=== PATIENT | female | born 1945 | race Caucasian/White ===

== ENCOUNTER 2023-07-15 06:23 | Inpatient (IN) | payer MEDICARE, OTHER, SELFPAY ==
--- NOTE | 2023-06-10 11:53 | CM ---
Patient is scheduled for an elective R THR on 07/15/23. Spoke with patient prior to surgery via telephone. Introduced role of Orthopedic Navigator. Patient reports that she lives with her significant other in a multi story home. There are three steps
to enter and a flight of steps down to the basement where she goes daily. There is a stair glide on these steps (she uses this going down but walks up the steps). She currently functions independently. She has a cane, rolling walker, raised toilet
seat with rails and hip kit. She has never had VN services. PCP is Dr. Irving De Jesus.
Discussed orthopedic program and post surgical plans. Reviewed anticipated length of stay and that goal is for her to return home at discharge. Also reviewed outpatient PT. Patient is in agreement with tentative plan and will go directly to
outpatient PT at [facility]. She will have support from her significant other when she goes home.
Patient will complete online education.
Plan: Orthopedic Navigator will remain available to assist with the care of patient and will reassess discharge needs after surgery.
[2023-06-25 09:02] VITALS: BMI 27.2
[2023-06-25 10:18] LABS: Hematocrit 38.6 % (37.0-47.0); Hemoglobin 13.2 g/dL (12.0-16.0); Mean Corp Hgb Conc. 34.2 g/dL (33.0-37.0); Mean Corpuscular Hgb 30.4 pg (27.0-31.0); Mean Corpuscular Volume 88.9 fL (81.0-99.0); Mean Platelet Volume 10.2 fL (7.4-10.4); Platelet Count 262 10^3/uL (130-400); Red Blood Cell Count 4.34 10^6/uL (4.20-5.40); Red Cell Dist. Width 13.2 % (11.5-14.5); White Blood Cell Count 5.9 10^3/uL (4.8-10.8)
[2023-06-25 11:07] LABS: ALT (SGPT) 27 U/L (0-35); AST (SGOT) 31 U/L (14-36); Albumin 4.1 g/dl (3.5-5.0); Alkaline Phosphatase 101 U/L (38-126); Blood Urea Nitrogen 18 mg/dl (7-17); Calcium 9.8 mg/dl (8.4-10.2); Carbon Dioxide 32 mmol/L (22-30); Chloride 103 mmol/L (98-107); Estimated Creatinine Clearance 70 ml/min; Glucose 94 mg/dl (70-99); Potassium 4.2 mmol/L (3.5-5.1); Sodium 140 mmol/L (135-145); Total Bilirubin 0.7 mg/dl (0.2-1.3); Total Protein 6.8 g/dl (6.3-8.2); eGFR > 60.00
[2023-06-25 13:20] LABS: Glycohemoglobin (HgbA1c) 5.5 % (4.0-5.6)
[2023-06-25 15:26] VITALS: BMI 27.2
[2023-07-15] VITALS (14 sets, daily range): BP systolic 125–188; BP diastolic 62–90; PULSE 86; BMI 27.2
[2023-07-15] MEDS: NORMOSOL-R 1000 IV (09:45)
[2023-07-15] MEDS: CELEBREX 200 MG PO (09:58)
[2023-07-15] MEDS: TYLENOL 650 MG PO ×3 (09:58→21:19)
[2023-07-15] MEDS: NSS 1000 IV (14:32)
[2023-07-15] MEDS: ROXICODONE 5 MG PO (15:35)
[2023-07-15] MEDS: COMPAZINE 5 MG IV ×2 (16:02→21:23)
--- NOTE | 2023-07-15 16:38 | PTCARENOTE ---
Patient received from PACU in bed; IVF infusing; Surgical site assessed with SHIPPING CLERK/ADMIN; Patient oriented to room and unit; Bed in lowest position, wheels locked; Call talbert within reach; PT/OT in to begin working with patient; Assessment ongoing
[2023-07-15] MEDS: NEURONTIN 200 MG PO ×2 (16:53→21:19)
[2023-07-15] MEDS: ANCEF 5 IV (17:01)
[2023-07-15] MEDS: SENOKOT PO (21:19)
[2023-07-15] MEDS: PROTONIX 40 MG PO (21:19)
[2023-07-15] MEDS: ATIVAN 0.5 MG PO (21:20)
[2023-07-15] MEDS: ELIQUIS 2.5 MG PO (21:20)
[2023-07-15] MEDS: COLACE 100 MG PO (21:21)
[2023-07-15] MEDS: BACTROBAN 2% OINTMENT 1 APPLIC NASAL (21:22)
[2023-07-15] MEDS: BETAPACE 60 MG PO (21:22)
[2023-07-16] MEDS: TYLENOL PO (00:46)
[2023-07-16] MEDS: ANCEF 5 IV (02:14)
[2023-07-16 03:31] VITALS: BP 115/58
[2023-07-16] MEDS: TYLENOL 650 MG PO ×3 (03:47→12:09)
[2023-07-16 07:38] VITALS: BP 120/67
[2023-07-16] MEDS: NEURONTIN 200 MG PO (07:55)
[2023-07-16] MEDS: PROTONIX 40 MG PO (07:55)
[2023-07-16] MEDS: SENOKOT 17.1999999999999993 MG PO (07:55)
[2023-07-16] MEDS: BETAPACE 60 MG PO (07:56)
[2023-07-16] MEDS: ELIQUIS 2.5 MG PO (07:56)
[2023-07-16] MEDS: COLACE 100 MG PO (07:56)
[2023-07-16] MEDS: COMPAZINE IV (07:57)
[2023-07-16] MEDS: ATIVAN 0.5 MG PO (07:57)
[2023-07-16] MEDS: BACTROBAN 2% OINTMENT 1 APPLIC NASAL (07:57)
--- NOTE | 2023-07-16 08:32 | CM ---
Addendum entered by Chery Gibson 07/16/23 11:11:
Patient did well in therapy. She has no concerns about going home and has updated her significant other.
Original Note:
Reviewed chart and held rounds with PT, OT and nursing. Patient admitted as planned for elective R THR. Met with patient at bedside. Confirmed information previously obtained for assessment. Also discussed discharge plans. The plan is for patient to
return home at discharge. She will have support from her significant other when she goes home. Patient will go directly to outpatient PT and will go to [facility]. She has an appointment scheduled for Saturday, 07/16.
Patient has a rolling walker, cane, lift chair, raised toilet seat and hip kit.
She will use [facility] pharmacy for discharge prescriptions.
--- NOTE | 2023-07-16 09:30 | W.PN.ORTHO ---
Today's Communication / Plan
-
Await PT and OT recs.
D/c later today if remaining clinically stable.
Assessment
.
Distal Motor Intact: Yes
Dressing:
Clean, dry and intact.
Assessment:
R hip OA s/p R LEOLA w/ Dr Renteria 07/15/23
DVT prophylaxis - Eliquis at modified dosing, b/l venous foot pumps
- Eliquis home dosing to be resumed POD 14 since hemodynamically stable
HTN - resumed Sotalol - BPs stable
PAF, status post cardioversion x5 and PVI 03/2021 - maintaining NSR on tele
- Continue Sotalol and Diltiazem if needed
- Eliquis as stated above
Chronic diastolic heart failure, preserved ejection fraction - no signs of fluid overload during admission
GERD - continue PPI therapy
Irritable bowel syndrome with constipation - add daily Miralax to bowel regimen of Colace and Senna
Peripheral neuropathy and Sciatica - add Gabapentin TID
Iron deficiency anemia, on oral supplementation - non-invasive hgb stable 12.8
- Continue PO iron
Mild valvular disease
History of chest pain; nuclear stress test and echo 2022 stable
Chronic fatigue and shortness of breath on exertion, medication induced
Diverticulosis with remote diverticulitis
Remote migraines
Vertigo
Lumbar degenerative disc disease
History of recurrent UTIs
Left eye cataract
Anxiety
Remote history of tobacco abuse
Plan
.
Surgery / Date: R LEOLA w/ Dr Renteria 07/15/23
DVT Prophylaxis: Other (Eliquis at modified dosing )
Activity:
Out of bed.
PT/OT
Discharge Plan: Home w/ Outpatient PT
Subjective
.
.:
Patient resting comfortably in bed.
R hip pain overall well tolerated w/ minimal pain meds.
Denies any new significant complaints.
Eager for potential d/c today.
Vital Signs and Labs
.
Vital Signs and Labs:
Lab Results
06/25/23 08:53
06/25/23 08:53
Temp Pulse Resp BP Pulse Ox
98.1 F 69 18 120/67 91
07/16/23 07:38 07/16/23 07:38 07/16/23 07:38 07/16/23 07:38 07/16/23 07:38
Non-invasive Hgb result: 12.8
Physical Exam
-
HEENT: No pallor, cyanosis, or jaundice. Throat clear.
NECK: Supple. No JVD.
RESPIRATORY: Lungs clear to auscultation.
CVS: S1, S2 normal. RRR.�
ABDOMEN: Soft, non-tender. No distension.
EXTREMITIES: Strength equal, no calf pain with palpation/dorsiflexion. Calves soft.
MOLDED FRAMES ASSEMBLER: AOx3. No focal deficits. program clinician grossly intact
[2023-07-16 10:26] VITALS: BP 123/68; PULSE 66; O2SAT 99
[2023-07-16 10:40] VITALS: BP 131/70; PULSE 64; O2SAT 94
--- NOTE | 2023-07-16 10:54 | W.DS.TRANS ---
DC Summary - Horse Trainer
-
Discharge Instructions:
Sleep Apnea Risk Intermediate
Discharge Diagnosis/Procedures R hip OA s/p R LEOLA w/ Dr Renteria 07/15/23
Diet Regular
Activity As tolerated,With Walker
Driving Restrictions Not until seen by your Dr
Bathing Restrictions OK to Shower
Other Services PT
Wound Care Dressing to be removed 1 week post-surgery.
Gerlaw to be removed at 2 week follow-up
appointment with surgeon's office.
Specialty Instructions Weigh Daily
Instructions:
Stand-Alone Forms: Total Hip/Knee Replacement D/C
Changes to Home Medications: Yes
Discharge Medications:
DC Medications w/original date entered in [employer] 7
ascorbic acid (vitamin C) 250 mg tablet 250 mg PO DAILY Supplement 10/14/14
B-complex with vitamin C 1 cap PO DAILY Supplement 01/19/21
Vit C/Vitamin D3/Herb No.313 [Synogesic Capsule] 1 tab PO TID Supplement 03/30/21
apixaban 5 mg tablet (Eliquis) 5 mg PO BID Blood clot prevention/tx 04/17/21
folic acid 1 mg tablet 1 mg PO DAILY Supplement 04/17/21
lorazepam 0.5 mg tablet 0.5 mg PO HS Mental Health/Anxiety 04/17/21
sotalol 120 mg tablet 60 mg (1/2 x 120 mg) PO BID Arrhythmia #60 tabs 04/18/21
diltiazem HCl 120 mg capsule,extended release 24 hr 120 mg PO DAILYPRN PRN palpitations 10/09/21
rabeprazole 20 mg tablet,delayed release (AcipHex) 20 mg PO HS Gastrointestinal Issue 10/09/21
Co Q-10 2 dose PO DAILY Supplement 06/19/23
Spiru-Tein 1 dose PO DAILY Supplement 06/25/23
pueagwd-ytlzidutp-wckt tablet 1 tab PO DAILY Supplement 06/25/23
cranberry 500 mg capsule 500 mg PO DAILY Supplement 06/25/23
ferrous sulfate 325 mg (65 mg iron) capsule,extended release 325 mg PO TUTH Supplement 06/25/23
lorazepam 0.5 mg tablet 0.5 mg PO DAILY PRN anxiety 06/25/23
mupirocin 2 % topical ointment 1 applic intranasal BID #1 tube 06/25/23
acetaminophen 500 mg tablet (Tylenol Extra Strength) 1,000 mg (2 x 500 mg) PO Q6H #60 tabs 07/16/23
apixaban 2.5 mg tablet (Eliquis) 2.5 mg PO BID #28 tabs 07/16/23
docusate sodium 100 mg capsule 100 mg PO BID #30 caps 07/16/23
gabapentin 100 mg capsule 200 mg (2 x 100 mg) PO TID neuropathic pain #30 caps 07/16/23
oxycodone 5 mg tablet 5 - 10 mg (1 - 2 x 5 mg) PO Q6H PRN moderate-severe pain #30 tabs 07/16/23
polyethylene glycol 3350 17 gram oral powder packet (Miralax) 17 g PO DAILY #14 ea 07/16/23
prochlorperazine maleate 5 mg tablet 5 mg PO Q8H #30 tabs 07/16/23
sennosides 8.6 mg tablet (Senna Laxative) 17.2 mg (2 x 8.6 mg) PO BID #30 tabs 07/16/23
Home Medication Changes
acetaminophen 500 mg tablet (Tylenol Extra Strength) 1,000 mg (2 x 500 mg) PO Q6H #60 tabs 07/16/23
apixaban 2.5 mg tablet (Eliquis) 2.5 mg PO BID #28 tabs 07/16/23 - until POD 14
docusate sodium 100 mg capsule 100 mg PO BID #30 caps 07/16/23
gabapentin 100 mg capsule 200 mg (2 x 100 mg) PO TID neuropathic pain #30 caps 07/16/23
oxycodone 5 mg tablet 5 - 10 mg (1 - 2 x 5 mg) PO Q6H PRN moderate-severe pain #30 tabs 07/16/23
polyethylene glycol 3350 17 gram oral powder packet (Miralax) 17 g PO DAILY #14 ea 07/16/23
prochlorperazine maleate 5 mg tablet 5 mg PO Q8H #30 tabs 07/16/23
sennosides 8.6 mg tablet (Senna Laxative) 17.2 mg (2 x 8.6 mg) PO BID #30 tabs 07/16/23
Pending Results: No
[2023-07-16 11:26] VITALS: BP 110/53
== END 2023-07-16 13:03 | disposition home or self-care (01) | DRG 470 ==
LOC: 2 SOUTH 06:23
PROVIDERS: ADMITTING PHYSICIAN Specialist; FAMILY PHYSICIAN Family Medicine
PROC: 0SR90JA Replacement of Right Hip Joint with Synthetic Substitute, Uncemented, Open Approach (ICD-10-PCS; 2023-07-15)
DX: M16.11 Unilateral primary osteoarthritis, right hip (principal); I50.32 Chronic diastolic (congestive) heart failure; I11.0 Hypertensive heart disease with heart failure; I48.0 Paroxysmal atrial fibrillation; R53.82 Chronic fatigue, unspecified; K21.9 Gastro-esophageal reflux disease without esophagitis; K58.1 Irritable bowel syndrome with constipation; G43.909 Migraine, unspecified, not intractable, without status migrainosus; G62.9 Polyneuropathy, unspecified; M51.36 Other intervertebral disc degeneration, lumbar region; K59.09 Other constipation; F41.9 Anxiety disorder, unspecified; M54.30 Sciatica, unspecified side; D50.9 Iron deficiency anemia, unspecified; Z87.440 Personal history of urinary (tract) infections; Z87.891 Personal history of nicotine dependence; Z79.01 Long term (current) use of anticoagulants
CPT/HCPCS: 36415; 73502; 80053; 83036; 85027; 87070; 97110; 97116; 97162; 97166; 97535; C1713; C1776

== ENCOUNTER 2023-11-03 19:00 | Emergency (ER) | payer MEDICARE, OTHER, SELFPAY ==
[2023-11-03 19:07] VITALS: BP 189/97
[2023-11-03 19:29] LABS: % Basophils 0.4 % (0-2); % Eosinophils 4.3 % (0-6); % Immature Granulocytes 0.8 % (0-0.5); % Lymphocytes 25.5 % (20.5-51.1); % Monocytes 7.2 % (1.7-9.3); % Neutrophils 61.8 % (42.2-75.2); Absolute Eosinophils 0.4 10^3/uL (0-0.7); Absolute Immature Granulocytes 0.1 10^3/uL (0-0.05); Absolute Lymphocytes 2.6 10^3/uL (1.2-3.4); Absolute Monocytes 0.7 10^3/uL (0.1-0.6); Absolute Neutrophils 6.4 10^3/uL (1.4-6.5); Hematocrit 38.9 % (37.0-47.0); Hemoglobin 13.9 g/dL (12.0-16.0); Mean Corp Hgb Conc. 35.7 g/dL (33.0-37.0); Mean Corpuscular Hgb 29.8 pg (27.0-31.0); Mean Corpuscular Volume 83.5 fL (81.0-99.0); Mean Platelet Volume 9.1 fL (7.4-10.4); Nucleated Red Blood Cells % 0 %; Platelet Count 309 10^3/uL (130-400); Red Blood Cell Count 4.66 10^6/uL (4.20-5.40); Red Cell Dist. Width 13.5 % (11.5-14.5); White Blood Cell Count 10.3 10^3/uL (4.8-10.8)
[2023-11-03 19:49] LABS: ALT (SGPT) 26 U/L (0-35); AST (SGOT) 28 U/L (14-36); Albumin 4.2 g/dl (3.5-5.0); Alkaline Phosphatase 112 U/L (38-126); Blood Urea Nitrogen 18 mg/dl (7-17); Calcium 10.7 mg/dl (8.4-10.2); Carbon Dioxide 35 mmol/L (22-30); Chloride 94 mmol/L (98-107); Glucose 104 mg/dl (70-99); Potassium 4.2 mmol/L (3.5-5.1); Sodium 135 mmol/L (135-145); Total Bilirubin 0.4 mg/dl (0.2-1.3); eGFR > 60.00
[2023-11-03 19:53] VITALS: BP 192/85
[2023-11-03 19:56] LABS: Troponin I < 0.012 ng/ml
[2023-11-03 20:00] VITALS: BP 162/86
--- NOTE | 2023-11-03 20:03 | ED.GENMED ---
History of Present Illness
General
Chief Complaint: Chest Pain
Source: patient
Exam Limitations: none
Time Seen by Provider: 11/03/23 19:42
History of Present Illness
History of Present Illness:
This is a 78 year old female that comes in with c/o elevated BP and chest pain. States that on Saturday she did not feel good. States that her BP was 140/99. States that her BP was going up and down. States that she called the PCP and has an
appointment tomorrow. States that she was recently started on Chlorthalidone 25mg. States that today she felt her BP was going ever higher. States that her left arm felt weird and she felt SOB and had chest tightness. State that her voice is also
hoarse. States that she also has a headache. Denies any fever, chills, abd pain, nausea, vomiting, diarrhea, dizziness, urinary burning.
Past History
Past History
ED Past Medical History: Arrthythmia (Atrial fib), GERD, HTN, Psychiatric (Anxiety) and Other (Back pain, Dizziness, Numbness arms and legs. Sciatica, Constipation, Diverticulitis, IBS, Ovarian cyst, UTI , Shingles, Hives, Anemia, Artgrutusm )
ED Past Surgical History: Cardiac (ablation, ), Gynecological (D&C, Hysterectomy), Orthopedic (Back surgery X 3, L4 herniation. Right hip replacement) and Other (cataracts, )
Social History
Tobacco: Non-smoker
Alcohol: None
Drug: None
Personal: Other (significant other)
Living: alone
Family History
Family History: Diabetes, CAD and Other (grandmother with breast cancer)
Review of Systems
Review of Systems
All Other Systems: ROS reviewed and negative except as documented in HPI and ROS
Constitutional: Reports no symptoms; Denies fever or chills
EENT: Reports no symptoms
Respiratory: Reports trouble breathing; Denies cough
Cardiac: Reports chest pain
ABD/GI: Reports no symptoms; Denies abdominal pain, nausea, vomiting or diarrhea
: Reports no symptoms; Denies dysuria, frequency or urgency
Musculoskeletal: Reports no symptoms
Skin: Reports no symptoms
Neurological: Reports headache; Denies dizzy
Psychiatric: Reports no symptoms
Phy Exam
General Physical Exam
General Presentation: no apparent distress
General age: appears stated age
General Skin: warm and dry
General Habitus: elderly
General Mental: alert
General Hydration: appears well hydrated
ENT Exam
ENT Exam: TM's normal, pharynx normal and neck supple
Eye Exam
Eye Exam: EOMI
Cardiovascular Exam
Cardiovascular Exam: regular rate/rhythm, no edema and normal peripheral pulses
Pulmonary Exam
Pulmonary Exam: lungs clear, no respiratory distress, no rales, chest non tender, no crackles, no rhonchi, no wheezing and no cough
Gastrointestinal Exam
Gastrointestinal Exam: normal bowel sounds, non tender, soft, no organomegaly, no pulsatile mass and non distended
Musculoskeletal Exam
Musculoskeletal Exam: full ROM and no edema
Skin Exam
Skin Exam: normal color, warm/dry, no rash and no petechia
Psychiatric Exam
Psychiatric Exam: normal mood/affect
Scores
Heart Score for Chest Pain Patients
STEMI patient?: No
History: Slightly or Non-Suspicious
ECG: Normal
Age: >/= 65 years
Risk Factors: 1 or 2 Risk Factors
Troponin: </= Normal Limit
Heart Score for Chest Pain Patients: 3
Heart Score Risk: 2.5% MACE over next 6 weeks
Course
Orders/Labs/Results
Orders:
Orders
11/03/23 19:12
Electrocardiogram (*1) Urgent
Reason for Study: Chest Pain
EKG- Treatment ONCE
11/03/23 19:24
Complete Blood Count/With Diff Urgent
Comprehensive Metabolic Panel Urgent
Troponin I Urgent
11/03/23 20:05
Apixaban [Eliquis] 5 mg PO NOW STA
Sotalol [Betapace] 60 mg PO NOW STA
11/03/23 20:07
CR Chest - 2 Views Urgent
Comment:
Reason For Exam: Chest pain
11/03/23 20:22
COVID-19 Antigen Urgent
Source: Nasal Swab
11/03/23 22:34
Troponin I Urgent
Abnormal Lab Results
11/03/23
19:24
Abs Immat Gran (auto) 0.1 H 10^3/uL
(0-0.05)
Absolute Monos (auto) 0.7 H 10^3/uL
(0.1-0.6)
Immature Gran % 0.8 H %
(0-0.5)
Chloride 94 L mmol/L
(98-107)
Carbon Dioxide 35 H mmol/L
(22-30)
BUN 18 H mg/dl
(7-17)
Glucose 104 H mg/dl
(70-99)
Calcium 10.7 H mg/dl
(8.4-10.2)
11/03/23 19:24
11/03/23 19:24
Chloride slightly low. carbon dioxide elevated. Slight Dehydration. Glucose nonfasting. Hypercalcemia, Troponin <0.012
Second Troponin <0.012
Vital Signs
Initial and Last Documented VS:
Initial Vital Signs
Temp Pulse Resp BP Pulse Ox
98.1 F 73 18 189/97 99
11/03/23 19:07 11/03/23 19:07 11/03/23 19:07 11/03/23 19:07 11/03/23 19:07
Last Documented Vital Signs
Temp Pulse Resp BP Pulse Ox
98.1 F 61 14 162/86 95
11/03/23 19:07 11/03/23 20:30 11/03/23 20:30 11/03/23 20:15 11/03/23 20:30
MDM/Problems Addressed
Differential Diagnosis Includes:
Coronary syndrome. COVID,
MDM/Problems Addressed:
This is a 78 year old female that comes in with hypertension, Chest discomfort. State that she didn't feel well on Saturday and her BP was elevated. States that she has an appointment with the PCP tomorrow. States thta today her BP was even higher and
her left arm felt funny and she had chest tightness with SOB.
Will get labs. Chest x-ray, test for COVID And give patient her medication that is due at 8pm.
Back into see patient. Explained that her both Troponin are normal and her last BP was 130/67. Will place patient on the cardiology hot line for further evaluation. Patient to return with increased or changing chest pain.
Chronic conditions affecting care: HTN
Acute Exacerbation and/or Progression of Chronic Illness: HTN
*Radiology
Radiology exam reviewed: preliminary read by ED provider (Chest- Negative for active disease. ) and radiology read reviewed (Chest- No acute cardiopulmonary process)
*Pulse Oximetry
Patient hypoxic: no
*EKG
Interpreted by ED Provider?: Yes
Heart Rate: 64
Rate: normal
Rhythm: sinus arrhythmia
[place]: left axis deviation
Interval: normal interval
QRS Pattern: normal QRS
Ischemia: no ischemia
*Heel Boom Operator Interpretation
Rate: normal
Heart Rate: 71
Rhythm: sinus
*Critical Care Note
Total Time (30-74mins, 75-104mins- exclusive of procedures): Not Applicable
ED Attending Note
-
Portions of this chart may have been created with voice recognition software.� Occasional wrong word or��sound alike� substitutions may have occurred due to the inherent limitations of voice recognition software.
Discharge Plan
Departure
Patient Disposition: Home (Routine Discharge)
Date of Disposition: 11/03/23
Time of Disposition: 23:21
Patient with high blood pressure during this ER visit?: Yes
Condition: Good
Covid-19: Not Applicable
Discharge Problem:
Chest pain, Hypertension
Instructions: Chest Pain DCA Follow Up, BLOOD PRESSURE
Prescriptions:
No Action
Eliquis 5 MG tablet
5 mg PO BID
sotalol 120 MG tablet
60 mg PO BID Qty: 60 11RF
rabeprazole [AcipHex] 20 MG tablet,delayed release (DR/EC)
20 mg PO HS
diltiazem HCl 120 MG capsule,extended release 24hr
120 mg PO DAILYPRN PRN (Reason: palpitations)
Patient Comments:
10/09/21 pt states she only takes if she is having afib
Rx Instructions:
rarely uses
lorazepam 0.5 mg Tablet
0.5 mg PO BID PRN (Reason: anxiety)
Eliquis 2.5 mg tablet
2.5 mg PO BID Qty: 28 0RF
Rx Instructions:
Cut 5 mg tab in 04/16 (= 2.5 mg) and take twice a day from 4/2 PM to 4/14 PM.
Resume 5 mg twice a day 4/15 AM.
chlorthalidone 25 mg Tablet
25 mg PO DAILY
Referrals:
Irving De Jesus DO [Family Provider] - Call in 1-3 days for appt
Activity Restrictions/Additional Instructions:
As discussed, your blood work shows very slight Dehydration. Please increase your water intake to 8-8oz glasses daily. Your chest x-ray was normal and both Troponin which are specific for the heart are normal. You have been place on the Cardiology
hot line for further evaluation. This means that you will be called the next business day and set up for an appointment with the Rip Machine Operator. IF YOU HAVE INCREASED OR CHANGING CHEST PAIN, OR YOU HAVE ANY OTHER CONCERNS PLEASE RETURN TO THE
EMERGENCY ROOM.
Interventions
Interventions:
*Risk Screen - Suicide Last Done: 11/03/23 19:10
*General Assessment Last Done: 11/03/23 19:10
*Neglect/Abuse Screening Last Done: 11/03/23 19:10
ED- Fall Risk Assessment Last Done: 11/03/23 20:06
ED- Cardiac Assessment Last Done: 11/03/23 20:06
Discharge Date and Time
Print Language: KITTITIAN
[2023-11-03] MEDS: BETAPACE 60 MG PO (20:15)
[2023-11-03] MEDS: ELIQUIS 5 MG PO (20:16)
[2023-11-03 20:41] LABS: COVID-19 Antigen Negative (Negative)
[2023-11-03 21:00] VITALS: BP 145/80
[2023-11-03 22:00] VITALS: BP 130/67
[2023-11-03 23:03] LABS: Troponin I < 0.012 ng/ml
== END 2023-11-03 23:35 | disposition home or self-care (01) ==
LOC: EMR 19:00
PROVIDERS: Clinical Nurse Specialist Family Health; EMERGENCY PHYSICIAN Emergency Medicine; FAMILY PHYSICIAN Family Medicine
DX: R07.89 Other chest pain (principal); I10 Essential (primary) hypertension; R06.02 Shortness of breath; I48.91 Unspecified atrial fibrillation; K21.9 Gastro-esophageal reflux disease without esophagitis; F41.9 Anxiety disorder, unspecified; K58.9 Irritable bowel syndrome, unspecified; D64.9 Anemia, unspecified; E83.52 Hypercalcemia; E86.0 Dehydration; Z79.01 Long term (current) use of anticoagulants; Z80.3 Family history of malignant neoplasm of breast; Z82.49 Family history of ischemic heart disease and other diseases of the circulatory system; Z83.3 Family history of diabetes mellitus; Z87.440 Personal history of urinary (tract) infections; Z90.710 Acquired absence of both cervix and uterus
CPT/HCPCS: 99283; 71046; 80053; 84484; 85025; 87811; 93005

== ENCOUNTER → 2023-11-14 10:00 | Outpatient (REF) | payer MEDICARE, OTHER, SELFPAY | LOC: HWWDC 10:00 | PROVIDERS: ATTENDING PHYSICIAN Nurse Practitioner Family; FAMILY PHYSICIAN Family Medicine | DX: Z12.31 Encounter for screening mammogram for malignant neoplasm of breast (principal) | CPT/HCPCS: 77063; 77067 ==

== ENCOUNTER → 2023-11-27 08:37 | Outpatient (REF) | payer MEDICARE, OTHER, SELFPAY | LOC: DHCBC/DCA 08:37 | PROVIDERS: ATTENDING PHYSICIAN Nurse Practitioner; FAMILY PHYSICIAN Family Medicine | DX: I48.0 Paroxysmal atrial fibrillation (principal) | CPT/HCPCS: 78452; 93017; A9500; J2785 ==

== ENCOUNTER → 2023-12-06 10:21 | Outpatient (REF) | payer MEDICARE, OTHER, SELFPAY | LOC: HWRCS 10:21 | PROVIDERS: ATTENDING PHYSICIAN Nurse Practitioner; FAMILY PHYSICIAN Family Medicine | DX: I48.0 Paroxysmal atrial fibrillation (principal) | CPT/HCPCS: 93306 ==

== ENCOUNTER 2024-02-17 07:33 | Emergency (ER) | payer MEDICARE, OTHER, SELFPAY ==
[2024-02-17 07:42] VITALS: BP 146/98
[2024-02-17] MEDS: ZOFRAN 4 MG IV (08:25)
[2024-02-17] MEDS: SUBLIMAZE 50 MCG IV (08:26)
--- NOTE | 2024-02-17 08:27 | ED.GENMED ---
History of Present Illness
General
Chief Complaint: Musculo-Skeletal Complaint
Time Seen by Provider: 02/17/24 08:06
History of Present Illness
History of Present Illness:
79 yo female w/ hx of PAF on Nelia presents to the Emergency Department for evaluation of intractable R shoulder/clavicle pain; reports she had a fall early Sat AM and was taken to [facility]. Per d/c summary, she had CT Chest/Abd/Pelvis
and pt states this showed only a R clavicle fx. She was also reportedly in rapid AF and was admitted for stablization, d/c last night. Was not given anything for pain due to GI intolerance of opiates. Report N/V this AM as well. No current CP/SOB.
Past History
Past History
ED Past Medical History: Arrthythmia (Atrial fib), GERD, HTN, Psychiatric (Anxiety) and Other (Back pain, Dizziness, Numbness arms and legs. Sciatica, Constipation, Diverticulitis, IBS, Ovarian cyst, UTI , Shingles, Hives, Anemia, Artgrutusm )
ED Past Surgical History: Cardiac (ablation, ), Gynecological (D&C, Hysterectomy), Orthopedic (Back surgery X 3, L4 herniation. Right hip replacement) and Other (cataracts, )
Social History
Tobacco: Non-smoker
Alcohol: None
Drug: None
Personal: Other (significant other)
Living: alone
Employment: Employed
Family History
Family History: Diabetes, CAD and Other (grandmother with breast cancer)
Review of Systems
Review of Systems
Allergies reviewed?: Yes
All Other Systems: ROS reviewed and negative except as documented in HPI and ROS
Phy Exam
Physical Exam
Physical Exam:
GEN: Well appearing, NAD, WDWN
HEENT: Oral mucosa moist, no scleral icterus
Cardiac: Regular rate and rhythm, no murmurs
Chest: Ecchymosis to the right infraclavicular chest wall compatible with recent injury, no crepitus
Lung: No respiratory distress, no tachypnea, lungs clear to auscultation bilaterally
MSK: No gross deformity or injuries
Skin: Good color, no pallor or jaundice, no rashes
Neuro: AO x3, moves all extremities freely
Psych: Calm, cooperative
Course
Orders/Labs/Results
Orders:
Orders
02/17/24 08:14
Electrocardiogram (*1) Urgent
Reason for Study: QTc Monitoring
EKG- Treatment ONCE
Fentanyl Citrate/Pf [Sublimaze] 50 mcg IV NOW STA
Ondansetron Injectable [Zofran] 4 mg .ROUTE .STK-MED ONE
Ondansetron Injectable [Zofran] 4 mg IV NOW STA
02/17/24 08:22
Complete Blood Count/With Diff Urgent
02/17/24 09:13
Comprehensive Metabolic Panel Urgent
Creatine Phosphokinase Urgent
Abnormal Lab Results
02/17/24 02/17/24
08:22 09:13
WBC 16.2 H 10^3/uL
(4.8-10.8)
Abs Immat Gran (auto) 0.1 H 10^3/uL
(0-0.05)
Absolute Neuts (auto) 13.7 H 10^3/uL
(1.4-6.5)
Absolute Monos (auto) 0.8 H 10^3/uL
(0.1-0.6)
Immature Gran % 0.6 H %
(0-0.5)
Neutrophils % 84.3 H %
(42.2-75.2)
Lymphocytes % 9.0 L %
(20.5-51.1)
Creatinine 0.4 L mg/dL
(0.6-1.0)
Glucose 114 H mg/dl
(70-99)
AST 41 H U/L
(14-36)
02/17/24 08:22
11/04/24 09:13
Vital Signs
Initial and Last Documented VS:
Initial Vital Signs
Temp Pulse Resp BP Pulse Ox
98.4 F 77 16 146/98 98
02/17/24 07:42 02/17/24 07:42 02/17/24 07:42 02/17/24 07:42 02/17/24 07:42
Last Documented Vital Signs
Temp Pulse Resp BP Pulse Ox
98.4 F 87 19 158/79 98
02/17/24 07:42 02/17/24 10:06 02/17/24 10:06 02/17/24 10:06 02/17/24 07:42
MDM/Problems Addressed
MDM/Problems Addressed:
79-year-old female presents to the emergency department with severe pain due to a known clavicle fracture. She also reports intractable vomiting. Labs were checked showing no evidence of electrolyte dyscrasia and CPK levels are normal. She was
treated with small dose of antiemetics and pain medicine with significant improvement in symptoms. Recommend outpatient Ortho follow-up for her clavicle pain
Comment
Comment:
EKG independently interpreted by me shows normal sinus rhythm at a rate of [address] depressions laterally, new compared to EKG from October 2023
*Critical Care Note
Total Time (30-74mins, 75-104mins- exclusive of procedures): Not Applicable
ED Attending Note
-
Portions of this chart may have been created with voice recognition software.� Occasional wrong word or��sound alike� substitutions may have occurred due to the inherent limitations of voice recognition software.
Discharge Plan
Departure
Patient Disposition: Home (Routine Discharge)
Date of Disposition: 02/17/24
Time of Disposition: 10:28
Patient with high blood pressure during this ER visit?: No
Discharge Problem:
Closed fracture of right clavicle
Instructions: Broken Collarbone ED
Prescriptions:
New
oxycodone 5 mg tablet
2.5 mg PO Q8H PRN (Reason: Pain) Qty: 8 0RF
No Action
sotalol 120 MG tablet
60 mg PO BID Qty: 60 11RF
rabeprazole [AcipHex] 20 MG tablet,delayed release (DR/EC)
20 mg PO BID
diltiazem HCl 120 MG capsule,extended release 24hr
120 mg PO DAILYPRN PRN (Reason: palpitations)
Rx Instructions:
~per patient - last taken in 2021
lorazepam 0.5 mg Tablet
0.5 mg PO BID PRN (Reason: anxiety)
Rx Instructions:
02/17/24: Filled #90 tabs/30 day supply on 01/20/24 at [place] [id number] [[id number]]
chlorthalidone 25 mg Tablet
25 mg PO DAILY
Eliquis 5 mg tablet
5 mg PO BID
cyclobenzaprine 5 mg tablet
5 mg PO TIDPRN PRN (Reason: muscle spasm/pain )
Referrals:
Talon Renteria MD [Active] -
Irving De Jesus DO [Family Provider] -
Interventions
Interventions:
*Risk Screen - Suicide Last Done: 02/17/24 07:44
*Neglect/Abuse Screening Last Done: 02/17/24 07:44
ED- Fall Risk Assessment Last Done: 02/17/24 07:57
*ED COVID-19 Vaccine History Last Done: 02/17/24 07:44
*Nursing Disposition Last Done: 02/17/24 10:53
ED-Musculoskeletal Assessment Last Done: 02/17/24 07:57
Discharge Date and Time
Discharge Date/Time: 02/17/24 10:54
Print Language: DANISH
[2024-02-17 08:30] VITALS: BP 148/74
[2024-02-17 08:46] LABS: % Basophils 0.4 % (0-2); % Eosinophils 0.8 % (0-6); % Immature Granulocytes 0.6 % (0-0.5); % Monocytes 4.9 % (1.7-9.3); % Neutrophils 84.3 % (42.2-75.2); Absolute Basophils 0.1 10^3/uL (0-0.2); Absolute Eosinophils 0.1 10^3/uL (0-0.7); Absolute Immature Granulocytes 0.1 10^3/uL (0-0.05); Absolute Lymphocytes 1.5 10^3/uL (1.2-3.4); Absolute Monocytes 0.8 10^3/uL (0.1-0.6); Absolute Neutrophils 13.7 10^3/uL (1.4-6.5); Hematocrit 37.5 % (37.0-47.0); Hemoglobin 12.9 g/dL (12.0-16.0); Mean Corp Hgb Conc. 34.4 g/dL (33.0-37.0); Mean Corpuscular Hgb 30.2 pg (27.0-31.0); Mean Corpuscular Volume 87.8 fL (81.0-99.0); Mean Platelet Volume 9.6 fL (7.4-10.4); Nucleated Red Blood Cells % 0 %; Platelet Count 259 10^3/uL (130-400); Red Blood Cell Count 4.27 10^6/uL (4.20-5.40); Red Cell Dist. Width 12.8 % (11.5-14.5); White Blood Cell Count 16.2 10^3/uL (4.8-10.8)
[2024-02-17 09:00] VITALS: BP 154/60
[2024-02-17 09:43] LABS: ALT (SGPT) 31 U/L (0-35); AST (SGOT) 41 U/L (14-36); Albumin 3.9 g/dl (3.5-5.0); Alkaline Phosphatase 81 U/L (38-126); Blood Urea Nitrogen 11 mg/dl (7-17); Calcium 9.9 mg/dl (8.4-10.2); Carbon Dioxide 26 mmol/L (22-30); Chloride 100 mmol/L (98-107); Creatine Phosphokinase 72 U/L (30-135); Glucose 114 mg/dl (70-99); Potassium 3.8 mmol/L (3.5-5.1); Sodium 137 mmol/L (135-145); Total Bilirubin 0.9 mg/dl (0.2-1.3); Total Protein 6.7 g/dl (6.3-8.2); eGFR > 60.00
[2024-02-17 10:06] VITALS: BP 158/79
== END 2024-02-17 10:54 | disposition home or self-care (01) ==
LOC: EMR 07:33
PROVIDERS: Physician Assistant; EMERGENCY PHYSICIAN Emergency Medicine; FAMILY PHYSICIAN Family Medicine
DX: S42.001A Fracture of unspecified part of right clavicle, initial encounter for closed fracture (principal); W19.XXXA Unspecified fall, initial encounter; I48.0 Paroxysmal atrial fibrillation
CPT/HCPCS: 99284; 96374; 96375; 80053; 82550; 85025; 93005

== ENCOUNTER 2024-04-14 11:04 | Outpatient (RCR) | payer MEDICARE, OTHER, SELFPAY | END 2024-04-14 23:59 | disposition home or self-care (01) | LOC: RPT 11:04 | PROVIDERS: ATTENDING PHYSICIAN Student in an Organized Health Care Education/Training Program; FAMILY PHYSICIAN Family Medicine | DX: S42.031D Displaced fracture of lateral end of right clavicle, subsequent encounter for fracture with routine healing (principal); R20.2 Paresthesia of skin; Z73.6 Limitation of activities due to disability | CPT/HCPCS: 97010; 97110; 97162; 97535 ==

== ENCOUNTER 2024-05-14 09:55 | Outpatient (RCR) | payer MEDICARE, OTHER, SELFPAY | END 2024-05-14 23:59 | disposition home or self-care (01) | LOC: RPT 09:55 | PROVIDERS: ATTENDING PHYSICIAN Student in an Organized Health Care Education/Training Program; FAMILY PHYSICIAN Family Medicine | DX: S42.031D Displaced fracture of lateral end of right clavicle, subsequent encounter for fracture with routine healing (principal); R20.2 Paresthesia of skin; Z73.6 Limitation of activities due to disability; X58.XXXD Exposure to other specified factors, subsequent encounter | CPT/HCPCS: 97010; 97110; 97140 ==

== ENCOUNTER 2024-06-11 10:57 | Outpatient (RCR) | payer MEDICARE, OTHER, SELFPAY | END 2024-06-11 23:59 | disposition home or self-care (01) | LOC: RPT 10:57 | PROVIDERS: ATTENDING PHYSICIAN Student in an Organized Health Care Education/Training Program; FAMILY PHYSICIAN Family Medicine | DX: S42.031D Displaced fracture of lateral end of right clavicle, subsequent encounter for fracture with routine healing (principal); Z73.6 Limitation of activities due to disability; X58.XXXD Exposure to other specified factors, subsequent encounter; R20.2 Paresthesia of skin | CPT/HCPCS: 97010; 97110; 97140 ==

== ENCOUNTER 2024-07-10 09:54 | Outpatient (RCR) | payer MEDICARE, OTHER, SELFPAY | END 2024-07-10 23:59 | disposition home or self-care (01) | LOC: RPT 09:54 | PROVIDERS: ATTENDING PHYSICIAN Student in an Organized Health Care Education/Training Program; FAMILY PHYSICIAN Family Medicine | DX: S42.031D Displaced fracture of lateral end of right clavicle, subsequent encounter for fracture with routine healing (principal); Z73.6 Limitation of activities due to disability; X58.XXXD Exposure to other specified factors, subsequent encounter; R20.2 Paresthesia of skin | CPT/HCPCS: 97110; 97140 ==

== ENCOUNTER 2024-08-12 10:48 | Outpatient (RCR) | payer MEDICARE, OTHER, SELFPAY | END 2024-08-12 23:59 | disposition home or self-care (01) | LOC: RPT 10:48 | PROVIDERS: ATTENDING PHYSICIAN Student in an Organized Health Care Education/Training Program; FAMILY PHYSICIAN Family Medicine | DX: S42.031D Displaced fracture of lateral end of right clavicle, subsequent encounter for fracture with routine healing (principal); Z73.6 Limitation of activities due to disability; R20.2 Paresthesia of skin; X58.XXXD Exposure to other specified factors, subsequent encounter | CPT/HCPCS: 97110; 97140 ==

== ENCOUNTER 2024-08-20 09:56 | Outpatient (RCR) | payer MEDICARE, OTHER, SELFPAY | END 2024-08-20 23:59 | disposition home or self-care (01) | LOC: RPT 09:56 | PROVIDERS: ATTENDING PHYSICIAN Student in an Organized Health Care Education/Training Program; FAMILY PHYSICIAN Family Medicine | DX: S42.031D Displaced fracture of lateral end of right clavicle, subsequent encounter for fracture with routine healing (principal); Z73.6 Limitation of activities due to disability; R20.2 Paresthesia of skin; W19.XXXD Unspecified fall, subsequent encounter; X58.XXXD Exposure to other specified factors, subsequent encounter | CPT/HCPCS: 97110 ==

== ENCOUNTER → 2024-09-10 07:45 | Outpatient (REF) | payer MEDICARE, OTHER, SELFPAY | LOC: RAD 07:45 | PROVIDERS: ATTENDING PHYSICIAN Internal Medicine Cardiovascular Disease; FAMILY PHYSICIAN Family Medicine | DX: M79.661 Pain in right lower leg (principal) | CPT/HCPCS: 93925 ==

== ENCOUNTER → 2025-01-29 14:19 | Outpatient (REF) | payer MEDICARE, OTHER, SELFPAY | LOC: HWWDC 14:19 | PROVIDERS: ATTENDING PHYSICIAN Nurse Practitioner Family | DX: Z12.31 Encounter for screening mammogram for malignant neoplasm of breast (principal) | CPT/HCPCS: 77063; 77067 ==